=== PATIENT | male | born 1950 | race Caucasian/White ===

== ENCOUNTER → 2025-01-20 | Outpatient (CLI) | payer MEDICARE, SELFPAY ==
[2025-01-21 14:08] LABS: PSA, Free 1.28 ng/mL; PSA, Free % 23.0 % (.); PSA, Total Ultrasensitive 5.560 ng/mL (0.000-4.000)
== END | disposition home or self-care (01) ==
LOC: LAB 08:21
PROVIDERS: PCP Nurse Practitioner Family; Referring Provider Urology; Visit Provider Urology
DX: R97.20 Elevated prostate specific antigen [PSA] (principal)
CPT/HCPCS: 36415; 84153; 84154